=== PATIENT | male | born 1955 | race Two or more races ===

== ENCOUNTER 2025-02-17 11:19 | Inpatient (IN) | payer BC, OTHER ==
[~2025-02-17] VITALS: Ht 180.3 cm; Wt 71.3 kg
[2025-02-17] MEDS: SODIUM CHLORIDE 0.9% 1,000 ML IV ONE ×3 (12:15→18:43)
--- NOTE | 2025-02-17 12:15 | ED.PDOC ---
GI ASSESSMENT HPI Comments 69 year old male with PMHx DM, colon cancer presents to the ED with a chief complaint of nausea/vomiting onset 1 week. Patient states he began experiencing nausea/vomiting, diarrhea for the past week. Patient is currently in treatment for colon cancer, received radiation today. Son states patient has also been experiencing generalized weakness, poor fluid intake, poor appetite for the past week. Denies fever, chills, chest pain, hematemesis, dizziness, dysuria, hematuria. No other symptoms or modifying factors present at this time. Chief Complaint: Nausea/Vomiting Time Seen by MD: 12:05 Reviewed Notes: Medications, Allergies Allergies: Coded Allergies: NO KNOWN ALLERGIES (Unverified , 02/17/25) Information Source: Patient, Relative Mode of Arrival: Ambulatory Timing: Weeks Duration: Since onset Prehospital treatment: None Stool: Loose Severity: Moderate Recent: None Recent Hx of: None Pain Location: Diffuse Modifying Factors: Nothing Associated sign and symptoms: Nausea, Vomiting, Diarrhea, Abdominal Pain Past Medical History PAST MEDICAL HISTORY: Cancer, DM Surgical History: Denies all surgeries Family History Family History: Reviewed,noncontributory to illness, No family hx of Cancer, No family hx of DM, No family hx of Heart gilberto, No family hx of HTN, No family hx ofKidney gilberto, No family hx of Liver gilberto, No family hx of Lung gilberto, No family hx of Stroke Social History Smoker: Non-Smoker Alcohol: Denies ETOH Use Drugs: Denies Drug Use Lives In: Home Constitutional: reports: weakness; denies: chills, diaphoresis, fatigue, fever, malaise, sweats, others EENTM: denies: blurred vision, double vision, ear bleeding, ear discharge, ear drainage, ear pain, ear ringing, eye pain, eye redness, hearing loss, mouth pain, mouth swelling, nasal discharge, nose bleeding, nose congestion, nose pain, photophobia, tearing, throat pain, throat swelling, voice changes, others Respiratory: denies: cough, hemoptysis, orthopnea, SOB at rest, shortness of breath, SOB with excertion, stridor, wheezing, others Cardiovascular: denies: chest pain, dizzy spells, diaphoresis, Dyspnea on exertion, edema, irregular heart beat, left arm pain, lightheadedness, palpitations, PND, syncope, others Gastrointestinal: reports: abdominal pain, diarrhea, nausea, poor appetite, poor fluid intake, vomiting; denies: abdomen distended, blood streaked bowels, constipated, dysphagia, difficulty swallowing, hematemesis, melena, rectal bleeding, rectal pain, others Genitourinary: denies: burning, dysuria, flank pain, frequency, hematuria, incontinence, penile discharge, penile sore, pain, testicle pain, testicle swelling, urgency, others Neurological: reports: weakness; denies: dizziness, fainting, headache, left sided numbness, left sided weakness, numbness, paresthesia, pre-existing deficit, right sided numbness, right sided weakness, seizure, speech problems, tingling, tremors, others Musculoskeletal: denies: back pain, gout, joint pain, joint swelling, muscle pain, muscle stiffness, neck pain, others Integumetry: denies: bruises, change in color, change in hair/nails, dryness, laceration, lesions, lumps, rash, wounds, others Allergic/Immunocompromised: denies: Difficulty Healing, Frequent Infections, Hives, Itching, others Hematologic/Lymphatic: denies: anemia, blood clots, easy bleeding, easy bruising, swollen glands, others Endocrine: denies: excessive hunger, excessive sweating, excessive thirst, excessive urination, flushing, intolerance to cold, intolerance to heat, unexplained weight gain, unexplained weight loss, others Psychiatric: denies: anxiety, bipolar disorder, depression, hopeless, panic disorder, schizophrenia, sleepless, suicidal, others All Other Systems: Reviewed and Negative Physical Exam General Appearance: Moderate Distress, Normal HEENT: Normal ENT Inspection, Pharynx Normal, TMs Normal Neck: Full Range of Motion, Non-Tender, Normal, Normal Inspection Respiratory: Chest Non-Tender, Lungs Clear, No Accessory Muscle Use, No Respiratory Distress, Normal Breath Sounds Cardiovascular: No Edema, No JVD, No Murmur, No Gallop, Normal Peripheral Pulses, Regular Rate/Rhythm Breast Exam: Deferred Gastrointestinal: No Organomegaly, Non Tender, No Pulsatile Mass, Normal Bowel Sounds, Soft Genitalia: Deferred Pelvic: Deferred Rectal: Deferred Extremities: No calf tenderness, Normal capillary refill, Normal inspection, Normal range of motion, Non-tender, No pedal edema Musculoskeletal : Apperance: Normal Neurologic: Alert, youth corrections officer II-XII nml as Tested, No Motor Deficits, Normal Affect, Normal Mood, No Sensory Deficits Cerebellar Function: NOT DONE Reflexes: NOT DONE Skin: Dry, Normal Color, Warm Peripheral Pulses: 3+ Radial (R), 3+ Radial (L) Lymphatic: No Adenopathy Was a procedure done? Was a procedure done?: No GI differential Dx Differential Diagnosis: Constipation, Diverticular disease, Esophagitis, Gastritis/PUD, Gastroenteritis X-Ray, Labs, Meds, VS Vital Signs Date Time Temp Pulse Resp B/P (MAP) Pulse Ox O2 Delivery O2 Flow Rate FiO2 02/17/25 11:21 98.8 82 17 137/79 99 98.8 Lab Test 02/17/25 12:42 Range/Units White Blood Count 3.1 L 4.4-10.8 10^3/uL Red Blood Count 4.51 4.5-5.90 10^6/uL Hemoglobin 13.3 L 13.5-17.5 g/dL Hematocrit 38.5 L 41.0-53.0 % Mean Corpuscular Volume 85.4 80.0-100.0 fL Mean Corpuscular Hemoglobin 29.5 28.0-32.0 pg Mean Corpuscular Hemoglobin Concent 34.5 32.0-36.0 g/dL Red Cell Distribution Width 12.9 11.8-14.3 % Platelet Count 332 140-450 10^3/uL Mean Platelet Volume 7.6 6.9-10.8 fL Neutrophils (%) (Auto) 83.7 H 37.0-80.0 % Lymphocytes (%) (Auto) 6.1 L 10.0-50.0 % Monocytes (%) (Auto) 9.8 0.0-12.0 % Eosinophils (%) (Auto) 0.3 0.0-7.0 % Basophils (%) (Auto) 0.1 0.0-2.0 % Neutrophils # (Auto) 2.6 1.6-8.6 10 ^3/uL Lymphocytes # (Auto) 0.2 L 0.4-5.4 10 ^3/uL Monocytes # (Auto) 0.3 0-1.3 10 ^3/uL Eosinophils # (Auto) 0 0-0.8 10 ^3/uL Basophils # (Auto) 0 0-0.2 10 ^3/uL Nucleated Red Blood Cells 0.1 % Prothrombin Time 11.9 H 9.3-11.8 sec Prothrombin Time INR 1.14 0.9-1.15 Sodium Level 134 L 136-145 mmol/L Potassium Level 3.6 3.5-5.1 mmol/L Chloride Level 93 L 98-107 mmol/L Carbon Dioxide Level 28 20-31 mmol/L Anion Gap 13 5-15 Blood Urea Nitrogen 47 H 9-23 mg/dL Creatinine 1.98 H 0.700-1.30 mg/dL Glomerular Filtration Rate Calc 36 >90 mL/min BUN/Creatinine Ratio 23.7 H 10.0-20.0 Serum Glucose 359 H 74-106 mg/dL Hemoglobin A1c 8.5 H <5.7 % A1C Calcium Level 8.7 8.7-10.4 mg/dL Current Medications Medications (Trade) Dose Ordered Sig/Adan Route Start Time Stop Time Status Last Admin Sodium Chloride 1,000 ml @ 1,000 mls/hr Q1H ONCE IV 02/17/25 12:15 02/17/25 13:14 DC 02/17/25 12:15 [place] [id number] Ph: [phone] DIAGNOSTIC IMAGING Diagnostic Imaging Report : [id number] Signed PATIENT: VASU WOLFE ACCT: [id number] UNIT: [id number] : 1955 LOC: ER ROOM / BED: / AGE / SEX: 69 / M ADM STATUS: REG ER SERVICE 1208 ORDERING PHYSICIAN: MIKE HAMLIN MD PROCEDURE(s): ABPL - CT AB PEL WO CON-NO ORAL OR IV REASON: colitis ORDER NUMBER(s): [id number], ACCESSION NUMBER(s): [id number] Exam: CT CT AB PEL WO CON-NO ORAL OR IV History: colitis Comparison Study: None TECHNIQUE: Multidetector CT of the abdomen was performed from lung bases to pubic symphysis. Imaging was performed without IV contrast. Axial, coronal and sagittal multiplanar reformats were obtained from the axial data set by the technologist. Radiation Dose Information: CT Dose: CTDI volume is 7.68 mGy. Dose-length product is 416.31 mGy*cm FINDINGS: The lung bases are clear. Partially visualized heart is unremarkable. Hepatic steatosis. Otherwise, liver, spleen, pancreas and adrenal glands unremarkable. Possible sludge within the gallbladder with no CT evidence of cholelithiasis or acute cholecystitis. Kidneys, ureters and urinary bladder unremarkable. Prostate is unremarkable. Mild gastric wall thickening which may be due to inadequate distention. Small bowel loops Upper Fluid-filled and nondistended. Appendix is unremarkable. Small amount of liquid stool within the colon. Minimal wall thickening of the sigmoid and rectum. No evidence of intraperitoneal free air or free fluid. No evidence of aortic aneurysm. Minimal atherosclerotic calcification of the aorta. No significant lymphadenopathy. Small fat containing left inguinal hernia with small fat containing umbilical hernia. No evidence of acute osseous abnormalities. IMPRESSION: Minimal wall thickening of the sigmoid and rectum which may be due to inadequate distention /mild colitis. Liquid stool within the colon with fluid-filled nondistended small bowel loops. Correlate for Possible diarrheal state. Gastric wall thickening which may be due to inadequate distention/gastritis. Additional findings as above. ATED BY: IESHA RAMOS DO DICTATED DATE/TIME: 02/17/25 134 SIGNED BY: IESHA RAMOS DO SIGNED DATE/TIME: 02/17/25 134 CC: Patient alert. Complaining of unable to tolerate any food. Vitals stable. Answering questions. Moving all extremities. CT of the abdomen reviewed does show colitis. Establish intravenous access. Was given fluids. EKG reviewed does not show any acute changes. Explained to the patient. Continue monitoring. Time of 1ST Reevaluation: 12:35 Reevaluation 1ST: Unchanged Patient Education/Counseling: Diagnosis, Treatment, Prognosis Family Education/Counseling: Diagnosis, Treatment, Prognosis SEPSIS Sepsis Screen Date sepsis recognized/suspect: Feb 17, 2025 Time Sepsis recognized/suspect: 1121 Recent Procedure: No On Antibiotic Therapy: No Respiratory Rate >20: No Heart Rate >90: No Temp<36 C (96.8 F) or >38.3 C: No SBP <90 or MAP <65 mmHG: No New Acute Mental Status Change: No Is the patient on CPAP, BIPAP,: No Physician Orders Urinalysis (02/17/25 12:08) Sodium Chloride 0.9% (02/17/25 12:15) Ct Ab Pel Wo Con-No Oral Or Iv (02/17/25 12:08) Vital Signs Date Time Temp Pulse Resp B/P (MAP) Pulse Ox O2 Delivery O2 Flow Rate FiO2 02/17/25 11:21 98.8 82 17 137/79 99 98.8 Laboratory Tests Test 02/17/25 12:42 White Blood Count 3.1 10^3/uL (4.4-10.8) L Medications Medications Dose Ordered Sig/Adan Route Start Time Stop Time Status Last Admin Dose Admin Sodium Chloride 1,000 ml @ 1,000 mls/hr Q1H ONCE IV 02/17/25 12:15 02/17/25 13:14 DC 02/17/25 12:15 Departure 1 Departure Time of Disposition: 16:20 Impression: Primary Impression: Rectal cancer Additional Impressions: Colitis Uncontrolled diabetes mellitus Qualified Codes: E13.65 - Other specified diabetes mellitus with hyperglycemia Disposition: ADMITTED INPATIENT Admit to: Med Surg Condition: Guarded Critical Care Note Critical Care Time?: No Stability Stability form required: No Heart Score Heart Score: Heart Score Response (Comments) Value History Slightly Suspicious 0 EKG Normal 0 Age >65 2 Risk Factors >3 or Hx ASHD 2 Troponin Normal limit 0 Total 4 I personally scribed for MIKE HAMLIN MD ([email or web address]) on 02/17/25 at 12:15. Electronically submitted by Kalpana Hunt ([email or web address]). I personally scribed for MIKE HAMLIN MD ([email or web address]) on 02/17/25 at 14:00. Electronically submitted by Kalpana Hunt ([email or web address]). MIKE HAMLIN MD Feb 17, 2025 12:15
[2025-02-17 13:15] LABS: Potassium 3.6 mmol/L (3.5-5.1)
[2025-02-17 13:16] LABS: Anion Gap 13 (5-15); Carbon Dioxide 28 mmol/L (20-31)
[2025-02-17 13:18] LABS: Hematocrit 38.5 % (41.0-53.0); Hemoglobin 13.3 g/dL (13.5-17.5); Mean Corpuscular Hemoglobin 29.5 pg (28.0-32.0); Mean Corpuscular Volume 85.4 fL (80.0-100.0); Nucleated Red Blood Cells % 0.1 %
[2025-02-17 13:21] LABS: BUN/Creatinine Ratio 23.7 (10.0-20.0); Blood Urea Nitrogen 47 mg/dL (9-23); Calcium 8.7 mg/dL (8.7-10.4); Chloride 93 mmol/L (98-107); Glucose 359 mg/dL (74-106); Sodium 134 mmol/L (136-145)
--- NOTE | 2025-02-17 13:45 | DVH ---
Exam: CT CT AB PEL WO CON-NO ORAL OR IV History: colitis Comparison Study: None TECHNIQUE: Multidetector CT of the abdomen was performed from lung bases to pubic symphysis. Imaging was performed without IV contrast. Axial, coronal and sagittal multiplanar reformats were obtained fr om the axial data set by the technologist. Radiation Dose Information: CT Dose: CTDI volume is 7.68 mGy. Dose-length product is 416.31 mGy*cm FINDINGS: The lung bases are clear. Partially visualized heart is unremarkable. Hepatic steatosis. Otherwise, liver, spleen, pancreas and adrenal glands unremarkable. Possible sludg e within the gallbladder with no CT evidence of cholelithiasis or acute cholecystitis. Kidneys, ureters and urinary bladder unremarkable. Prostate is unremarkable. Mild gastric wall thickening which may be due to inadequate distention. Small bowel loops Upper Fluid -filled and nondistended. Appendix is unremarkable. Small amount of liquid stool within the colon. M inimal wall thickening of the sigmoid and rectum. No evidence of intraperitoneal free air or free fluid. No evidence of aortic aneurysm. Minimal atherosclerotic calcification of the aorta. No significant lymphadenopathy. Small fat containing left inguinal hernia with small fat containing umbilical hernia. No evidence of acute osseous abnormalities. IMPRESSION: Minimal wall thickening of the sigmoid and rectum which may be due to inadequate distention /mild col itis. Liquid stool within the colon with fluid-filled nondistended small bowel loops. Correlate for Possib le diarrheal state. Gastric wall thickening which may be due to inadequate distention/gastritis. Additional findings as above.
[2025-02-17] MEDS ORDERED: ONDANSETRON HCL 4 MG/2 ML VIAL IV PRN (15:00)
--- NOTE | 2025-02-17 15:07 | DVHHPRES ---
History of Present Illness Resident Creating Document: ANA MARTINI RESIDENT History of Present Illness Patient is a 69-year-old male with past medical history of stage I rectal carcinoma diagnosed in August 2024 being treated with radiotherapy and chemotherapy since 01/22/2025, hypertension, type 2 diabetes non-insulin dependent, who comes in due to intractable nausea, vomiting and diarrhea. According to the patient, since beginning radiation and chemotherapy on January 22, he has been having diarrhea, however, over the last 2 days his diarrhea has been worsening along with intractable vomiting, innumerable episodes which is what prompted this visit to the hospital. Denies any blood in vomit, notes vomitus containing bile, denies any blood in stool, notes stool watery and orange yellow in color. Per patient, his last radiotherapy/chemotherapy session was yesterday on 02/16/2025 in his next radiotherapy/chemotherapy session is tomorrow on 02/18/2025. On review of systems patient is complaining of nausea, vomiting, diarrhea, lethargy, fatigue. CT abdomen pelvis showed Minimal wall thickening of the sigmoid and rectum which may be due to inadequate distention /mild colitis. Liquid stool within the colon with fluid-filled nondistended small bowel loops. Correlate for Possible diarrheal state. Gastric wall thickening which may be due to inadequate distention/gastritis. Past Medical History stage I rectal carcinoma diagnosed in August 2024 being treated with radiotherapy and chemotherapy since 01/22/2025, hypertension, type 2 diabetes non-insulin dependent Past Surgical History Denies Past Social History Smoking: Half a pack per day for the past 40 years Alcohol: Denies Drugs: Denies Review of Systems Constitutional: Yes: Weakness, Malaise; No: Fever, Chills, Sweats, Other Eyes: No: Pain, Vision change, Conjunctivae inflammation, Eyelid inflammation, Other, Redness ENT: No: Ear pain, Ear discharge, Nose pain, Nose discharge, Nose congestion, Mouth pain, Mouth swelling, Throat pain, Throat swelling, Other Respiratory: No: Cough, Dry, Shortness of breath, SOB with excertion, Wheezing, Hemoptysis, Pleuritic Pain, Sputum, Wheezing, Other Cardiovascular: No: Chest Pain, Palpitations, Orthopnea, Paroxysmal Noc. Dyspnea, Edema, Lt Headedness, Other Gastrointestinal: Nausea, Vomiting, Diarrhea; No: Abdominal Pain, Constipation, Melena, Hematochezia, Other Genitourinary: No Dysuria, No Frequency, No Incontinence, No Hematuria, No Retention, No Other Musculoskeletal: No: other, neck pain, shoulder pain, arm pain, back pain, hand pain, leg pain, foot pain Skin: No: Rash, Lesions, Jaundice, Bruising, Other Neurological: No: Weakness, Numbness, Incoordination, Change in speech, Confusion, Seizures, Other Allergies: Coded Allergies: NO KNOWN ALLERGIES (Unverified , 02/17/25) Medications Current Medications Medications Dose Ordered Sig/Adan Route Start Time Stop Time Status Last Admin Dose Admin Ondansetron HCl 4 mg Q4HP PRN IV 02/17/25 15:00 UNV Enoxaparin Sodium 40 mg DAILY SC 02/18/25 10:00 UNV Exam Vital Signs Vital Signs Date Time Temp Pulse Resp B/P (MAP) Pulse Ox O2 Delivery O2 Flow Rate FiO2 02/17/25 11:21 98.8 82 17 137/79 99 98.8 General Appearance: Alert, Oriented X3, Cooperative, moderate distress HEENT: Atraumatic, PERRLA, EOMI, Other (Dry mucous membranes) Respiratory: Normal air movement, Other (Scattered wheezes) Cardiovascular: Regular rate, Normal S1, Normal S2 Abdominal: Normal bowel sounds, Soft, No tenderness Extremities: No edema Skin: No rashes Neuro: Normal speech Psych/Mental Status: Mental status NL, Mood NL Labs/Xrays Labs Test 02/17/25 12:42 Range/Units White Blood Count 3.1 L 4.4-10.8 10^3/uL Red Blood Count 4.51 4.5-5.90 10^6/uL Hemoglobin 13.3 L 13.5-17.5 g/dL Hematocrit 38.5 L 41.0-53.0 % Mean Corpuscular Volume 85.4 80.0-100.0 fL Mean Corpuscular Hemoglobin 29.5 28.0-32.0 pg Mean Corpuscular Hemoglobin Concent 34.5 32.0-36.0 g/dL Red Cell Distribution Width 12.9 11.8-14.3 % Platelet Count 332 140-450 10^3/uL Mean Platelet Volume 7.6 6.9-10.8 fL Neutrophils (%) (Auto) 83.7 H 37.0-80.0 % Lymphocytes (%) (Auto) 6.1 L 10.0-50.0 % Monocytes (%) (Auto) 9.8 0.0-12.0 % Eosinophils (%) (Auto) 0.3 0.0-7.0 % Basophils (%) (Auto) 0.1 0.0-2.0 % Neutrophils # (Auto) 2.6 1.6-8.6 10 ^3/uL Lymphocytes # (Auto) 0.2 L 0.4-5.4 10 ^3/uL Monocytes # (Auto) 0.3 0-1.3 10 ^3/uL Eosinophils # (Auto) 0 0-0.8 10 ^3/uL Basophils # (Auto) 0 0-0.2 10 ^3/uL Nucleated Red Blood Cells 0.1 % Sodium Level 134 L 136-145 mmol/L Potassium Level 3.6 3.5-5.1 mmol/L Chloride Level 93 L 98-107 mmol/L Carbon Dioxide Level 28 20-31 mmol/L Anion Gap 13 5-15 Blood Urea Nitrogen 47 H 9-23 mg/dL Creatinine 1.98 H 0.700-1.30 mg/dL Glomerular Filtration Rate Calc 36 >90 mL/min BUN/Creatinine Ratio 23.7 H 10.0-20.0 Serum Glucose 359 H 74-106 mg/dL Calcium Level 8.7 8.7-10.4 mg/dL SEPSIS Sepsis Screen Date sepsis recognized/suspect: Feb 17, 2025 Time Sepsis recognized/suspect: 1121 Recent Procedure: No On Antibiotic Therapy: No Respiratory Rate >20: No Heart Rate >90: No Temp<36 C (96.8 F) or >38.3 C: No SBP <90 or MAP <65 mmHG: No New Acute Mental Status Change: No Is the patient on CPAP, BIPAP,: No Physician Orders Urinalysis (02/17/25 12:08) Sodium Chloride 0.9% (02/17/25 12:15) Ct Ab Pel Wo Con-No Oral Or Iv (02/17/25 12:08) Admit (02/17/25 14:51) Allergies (02/17/25 14:51) Code Status (02/17/25 14:51) Ondansetron Hcl (Zofran) (02/17/25 15:00) Enoxaparin Sodium (Lovenox) (02/18/25 10:00) Complete Blood Count (02/18/25 04:00) Comprehensive Metabolic Panel (02/18/25 04:00) Npo (Nothing By Mouth) Diet (02/17/25 Dinner) Condition: Unstable (02/17/25 14:51) Notify Md Of Changes From Base (02/17/25 14:51) Lactic Acid W/ Reflex Order (02/17/25 14:53) Lipase (02/17/25 14:53) Clostridium Difficile Toxin (02/17/25 14:53) Ova & Parasite Exam (02/17/25 14:53) Stool Bacterial Culture (02/17/25 14:53) Stool Occult Blood (02/17/25 14:53) Stool Wbc (02/17/25 14:53) Electrocardigram (02/17/25 14:53) NS (02/17/25 15:00) Ondansetron Hcl (Zofran) (02/17/25 15:00) Vital Signs Date Time Temp Pulse Resp B/P (MAP) Pulse Ox O2 Delivery O2 Flow Rate FiO2 02/17/25 11:21 98.8 82 17 137/79 99 98.8 Laboratory Tests Test 02/17/25 12:42 White Blood Count 3.1 10^3/uL (4.4-10.8) L Medications Medications Dose Ordered Sig/Adan Route Start Time Stop Time Status Last Admin Dose Admin Sodium Chloride 1,000 ml @ 1,000 mls/hr Q1H ONCE IV 02/17/25 12:15 02/17/25 13:14 DC 02/17/25 12:15 1,000 MLS/HR Assessment/Plan Assessment/Plan Acute intractable vomiting Acute colitis likely due to chemo/radiotherapy vs infectious or inflammatory Probable gastritis - CT abdomen pelvis: Minimal wall thickening of the sigmoid and rectum which may be due to inadequate distention /mild colitis. Liquid stool within the colon with fluid-filled nondistended small bowel loops. Correlate for Possible diarrheal state. Gastric wall thickening which may be due to inadequate distention/gastritis. - ordered stool occult blood, stool WBCs, stool bacterial culture, stool ova and parasite, stool C diff - IV NS at 100 cc/hour maintenance - IV Protonix 40 mg daily - IV ceftriaxone, IV metronidazole JOSEFINA, hemodynamically mediated/VMN - 1 L NS bolus, IV NS at 100 cc/hour - monitor Type 2 diabetes, uncontrolled, non-insulin dependent - mild sliding scale insulin, patient NPO - ordered A1c Essential hypertension - currently holding home antihypertensive medication as patient running soft blood pressures History of stage I rectal cancer Currently on chemotherapy and radiation therapy Leukopenia with WBCs 3.1 Immunocompromised due to above - monitor PUD prophylaxis: protonix 40mg DVT prophylaxis: Levonox 40mg Goals of care: Full code, discussed for >16 minutes on 02/17/2025 Plan discussed with patient Plan discussed with Dr. Styles Plan discussed with: Patient, Son, Other (RN) My Orders Orders - ANA MARTINI RESIDENT Procedure Category Date Status Time Admit ADMIT 02/17/25 Transmitted 14:51 Allergies NERISSA 02/17/25 In Process 14:51 Code Status CODE 02/17/25 Transmitted 14:51 Ondansetron Hcl PHA 02/17/25 Logged (Zofran) 15:00 Enoxaparin Sodium PHA 02/18/25 Logged (Lovenox) 10:00 Complete Blood Count LAB 02/18/25 Verified 04:00 Comprehensive LAB 02/18/25 Verified Metabolic Panel 04:00 Npo (Nothing By DIET 02/17/25 Transmitted Mouth) Diet Dinner Condition: Unstable NERISSA 02/17/25 In Process 14:51 Notify Of Changes NERISSA 02/17/25 In Process From Base 14:51 Lactic Acid W/ Reflex LAB 02/17/25 Logged Order 14:53 Lipase LAB 02/17/25 Logged 14:53 Clostridium Difficile AUGUSTINE 02/17/25 Logged Toxin 14:53 Ova & Parasite Exam AUGUSTINE 02/17/25 Logged 14:53 Stool Bacterial AUGUSTINE 02/17/25 Logged Culture 14:53 Stool Occult Blood LAB 02/17/25 Logged 14:53 Stool Wbc LAB 02/17/25 Logged 14:53 Electrocardigram EKG 02/17/25 Logged 14:53 NS PHA 02/17/25 Transmitted 15:00 Ondansetron Hcl PHA 02/17/25 Transmitted (Zofran) 15:00 Date of Service: Feb 17, 2025 Billing Provider: ARABELLA STYLES MD Common Visit Codes: [id number] INP/OBS CARE (HIGH) ANA MARTINI RESIDENT Feb 17, 2025 15:07
[2025-02-17] MEDS ORDERED: DEXTROSE (50%) 50ML SYRG IV PRN (15:15)
[2025-02-17 16:35] LABS: INR 1.14 (0.9-1.15); Prothrombin Time 11.9 sec (9.3-11.8)
[2025-02-17] MEDS: ACCU-CHEK COMFORT CURVE STRIP VI SCH (18:43)
[2025-02-17] MEDS: ONDANSETRON HCL 4 MG/2 ML VIAL IV ONE (18:43)
[2025-02-17] MEDS: CHOLESTYRAMINE 4 GM POWDER PO ONE (18:44)
[2025-02-17] MEDS: InsuLIN REG 1unit/0.01ml Soln (100units/ml) SC SCH (18:55)
[2025-02-17 19:01] VITALS: PULSE 84; RESP 16; O2SAT 98
[2025-02-17 20:00] VITALS: PULSE 60; O2SAT 97
[2025-02-17 21:00] VITALS: BP 167/70; PULSE 63; RESP 17; TEMP 98.9; O2SAT 96
[2025-02-17] MEDS ORDERED: INSULIN LANTUS (GLARGINE) 1 /0.01ml (100units/ml) SC SCH (22:00)
--- NOTE | 2025-02-18 09:44 | DVHDSRES ---
Discharge Summary Date of Admission Resident Creating Document: ANA MARTINI RESIDENT Feb 17, 2025 at 14:51 Date of Discharge: Feb 18, 2025 Admitting Diagnosis Intractable vomiting Labs/Diagnostic Data: Laboratory Results Test 02/17/25 20:37 02/17/25 15:26 02/17/25 12:42 POC Glucose 301 mg/dl (70-106) Lactic Acid Level 1.7 mmol/L (0.4-2.0) Uric Acid 7.1 mg/dL (3.7-9.2) Lipase 32 U/L (12-53) White Blood Count 3.1 10^3/uL (4.4-10.8) Red Blood Count 4.51 10^6/uL (4.5-5.90) Hemoglobin 13.3 g/dL (13.5-17.5) Hematocrit 38.5 % (41.0-53.0) Mean Corpuscular Volume 85.4 fL (80.0-100.0) Mean Corpuscular Hemoglobin 29.5 pg (28.0-32.0) Mean Corpuscular Hemoglobin Concent 34.5 g/dL (32.0-36.0) Red Cell Distribution Width 12.9 % (11.8-14.3) Platelet Count 332 10^3/uL (140-450) Mean Platelet Volume 7.6 fL (6.9-10.8) Neutrophils (%) (Auto) 83.7 % (37.0-80.0) Lymphocytes (%) (Auto) 6.1 % (10.0-50.0) Monocytes (%) (Auto) 9.8 % (0.0-12.0) Eosinophils (%) (Auto) 0.3 % (0.0-7.0) Basophils (%) (Auto) 0.1 % (0.0-2.0) Neutrophils # (Auto) 2.6 10 ^3/uL (1.6-8.6) Lymphocytes # (Auto) 0.2 10 ^3/uL (0.4-5.4) Monocytes # (Auto) 0.3 10 ^3/uL (0-1.3) Eosinophils # (Auto) 0 10 ^3/uL (0-0.8) Basophils # (Auto) 0 10 ^3/uL (0-0.2) Nucleated Red Blood Cells 0.1 % Prothrombin Time 11.9 sec (9.3-11.8) Prothrombin Time INR 1.14 (0.9-1.15) Sodium Level 134 mmol/L (136-145) Potassium Level 3.6 mmol/L (3.5-5.1) Chloride Level 93 mmol/L (98-107) Carbon Dioxide Level 28 mmol/L (20-31) Anion Gap 13 (5-15) Blood Urea Nitrogen 47 mg/dL (9-23) Creatinine 1.98 mg/dL (0.700-1.30) Glomerular Filtration Rate Calc 36 mL/min (>90) BUN/Creatinine Ratio 23.7 (10.0-20.0) Serum Glucose 359 mg/dL (74-106) Hemoglobin A1c 8.5 % A1C (<5.7) Calcium Level 8.7 mg/dL (8.7-10.4) Other Laboratory Tests 02/17/25 12:42 Brief Hx & Hospital Course: Patient is a 69-year-old male with past medical history of stage I rectal carcinoma diagnosed in August 2024 being treated with radiotherapy and chemotherapy since 01/22/2025, hypertension, type 2 diabetes non-insulin dependent, who comes in due to intractable nausea, vomiting and diarrhea. According to the patient, since beginning radiation and chemotherapy on January 22, he has been having diarrhea, however, over the last 2 days his diarrhea has been worsening along with intractable vomiting, innumerable episodes which is what prompted this visit to the hospital. Denies any blood in vomit, notes vomitus containing bile, denies any blood in stool, notes stool watery and orange yellow in color. Per patient, his last radiotherapy/chemotherapy session was yesterday on 02/16/2025 in his next radiotherapy/chemotherapy session is tomorrow on 02/18/2025. On review of systems patient is complaining of nausea, vomiting, diarrhea, lethargy, fatigue. CT abdomen pelvis showed Minimal wall thickening of the sigmoid and rectum which may be due to inadequate distention /mild colitis. Liquid stool within the colon with fluid-filled nondistended small bowel loops. Correlate for Possible diarrheal state. Gastric wall thickening which may be due to inadequate Hospital course: Patient was started on IV ceftriaxone, IV metronidazole. IV NS was also started for the patient as well as IV Zofran q.4 as needed for nausea and vomiting. Patient was also started on Questran 1 packet daily, stool studies were ordered including stool WBCs, stool bacterial culture, stool C diff. however, patient left against medical advice before further evaluation and management could be completed. Condition at Discharge: Undetermined Final Diagnosis/Problems List Acute intractable vomiting Acute colitis likely due to chemo/radiotherapy vs infectious or inflammatory Probable gastritis JOSEFINA, hemodynamically mediated/VMN Type 2 diabetes, uncontrolled, non-insulin dependent Essential hypertension History of stage I rectal cancer Currently on chemotherapy and radiation therapy Leukopenia with WBCs 3.1 Immunocompromised due to above Discharge Disposition: AMA Discharge Statement: "Patient was advised to return to the ER or call 911 if any headaches, dizziness, shortness of breath, chest pain, abdominal pain, bleeding, fevers, or worsening of medical condition. Patient was counseled about treatment plan, medications, possible side effects, patientverbalized understanding. All questions were answered to the best of my ability. This discharge took greater then 30 minutes in planning, reviewing documentation, counseling the patient, and discussing with other team members." ASSESSMENT ASSESSMENT Assessment Date of Service: Feb 18, 2025 Billing Provider: ARABELLA TREVIÑO MD Common Visit Codes: 73146-AKM/OBS DISCH DAY <30MIN ANA MARTINI RESIDENT Feb 18, 2025 09:44
[2025-02-18] MEDS ORDERED: PANTOPRAZOLE 40 MG/10 ML VIAL INJ IV SCH (10:00)
[2025-02-18] MEDS ORDERED: ENOXAPARIN SOD 40 MG/0.4 ML SYRINGE SC SCH (10:00)
[2025-02-18] MEDS ORDERED: CHOLESTYRAMINE 4 GM POWDER PO SCH (11:00)
== END 2025-02-17 22:50 | disposition left against medical advice (07) | DRG 393 ==
LOC: ER 11:19 → OVERFLOW 14:51 → EAST 21:02
PROVIDERS: ATTEND Emergency Medicine
DX: K52.1 Toxic gastroenteritis and colitis (principal); N17.0 Acute kidney failure with tubular necrosis; A09 Infectious gastroenteritis and colitis, unspecified; C20 Malignant neoplasm of rectum; C18.9 Malignant neoplasm of colon, unspecified; D84.9 Immunodeficiency, unspecified; K52.0 Gastroenteritis and colitis due to radiation; K29.70 Gastritis, unspecified, without bleeding; I10 Essential (primary) hypertension; Z53.29 Procedure and treatment not carried out because of patient's decision for other reasons; E11.9 Type 2 diabetes mellitus without complications; Z79.899 Other long term (current) drug therapy; T45.1X5A Adverse effect of antineoplastic and immunosuppressive drugs, initial encounter; Y92.89 Other specified places as the place of occurrence of the external cause
CPT/HCPCS: 36415; 74176; 80048; 82962; 83036; 83605; 83690; 84550; 85025; 85610; 96360; G0378; J2405; J3490